=== PATIENT | male | born 1965 | race Caucasian/White ===

== ENCOUNTER 2021-11-28 07:26 | Inpatient (IN) ==
[2021-11-28] MEDS ORDERED: FUROSEMIDE 100 MG/10 ML VIAL IV STA (07:57)
[2021-11-28 08:06] LABS: Basophils % 0.5 % (0.0-0.8); Eosinophils # 0.1 10*3/uL (0.0-0.87); Eosinophils % 0.8 % (0.00-10.9); Hemoglobin 13.3 GM/DL (14.0-18.0); Immature Granulocytes % 0.3 %; Immature Granulocytes Absolute 0.02 #; Lymphocytes # 1.1 10*3/uL (1.4-4.0); Lymphocytes % 16.4 % (21.2-54.2); Mean Corpuscular HGB Conc 30.9 GM/DL (32-36); Mean Corpuscular Volume 97.5 FL (87-102); Mean Platelet Volume 9.7 FL (9.6-12.0); Monocytes # 0.6 10*3/uL (0.11-0.8); Monocytes % 8.4 % (1.7-12.7); Neutrophils % 73.6 % (38.7-73.9); Platelet Count 193 T/CUMM (130-400); Red Blood Count 4.41 MC/CUMM (3.8-5.5); Red Cell Distribution Width 15.5 % (9.3-17.3); White Blood Count 6.5 T/CUMM (4-12)
[2021-11-28 08:24] LABS: Albumin 3.8 G/DL (3.4-5.0); Calcium 9.5 MG/DL (8.5-10.1); Total Protein 7.2 G/DL (6.4-8.2)
[2021-11-28 08:55] LABS: Urine Appearance Clear (Clear); Urine Color Yellow (Yellow)
[2021-11-28 08:56] LABS: Bilirubin,Urine Negative (Negative); Blood, Urine Negative (Negative); Glucose,Urine (UA) Negative (Negative); Ketones,Urine Negative (Negative); Nitrite,Urine Negative (Negative); Protein,Urine Negative (Negative)
[2021-11-28 08:59] LABS: Mucus,Urine Occasional /LPF (Occasional); RBC,Urine <1 /HPF (0-4)
[2021-11-28] MEDS ORDERED: ONDANSETRON 4 MG/2 ML VIAL IV PRN (10:46)
[2021-11-28] MEDS ORDERED: ACETAMINOPHEN 325 MG TABLET PO PRN (10:46)
[2021-11-28] MEDS ORDERED: GLUCAGON 1 MG VIAL IM PRN (10:46)
[2021-11-28] MEDS ORDERED: CYCLOBENZAPRINE 10 MG TABLET PO PRN (10:56)
[2021-11-28] MEDS ORDERED: DEXTROSE 10% 250 ML BAG IV PRN (11:02)
[2021-11-28] MEDS: ALBUTEROL 2.5 MG/3 ML NEB RESP TX SCH ×2 (12:49→19:14)
[2021-11-28] MEDS: FUROSEMIDE 40 MG/4 ML VIAL IV SCH ×2 (13:14→23:45)
[2021-11-28] MEDS: ENOXAPARIN 40 MG/0.4 ML SYRINGE SUBCUT SCH (13:14)
[2021-11-28] MEDS: LORazepam 1 MG TABLET PO PRN (13:22)
[2021-11-28] MEDS: SPIRONOLACTONE 25 MG TABLET PO SCH (14:08)
[2021-11-28] MEDS: carvediloL 3.125 MG TABLET PO SCH ×2 (14:08→22:36)
[2021-11-28] MEDS: GABAPENTIN 300 MG CAPSULE PO SCH ×2 (15:58→22:36)
[2021-11-28] MEDS ORDERED: DAPAGLIFLOZIN 10 MG TABLET PO SCH (22:00)
[2021-11-28] MEDS: traZODone 50 MG TABLET PO SCH (22:36)
[2021-11-28] MEDS: QUEtiapine 100 MG TABLET PO SCH (22:36)
[2021-11-29 06:15] LABS: Basophils % 0.5 % (0.0-0.8); Eosinophils # 0.1 10*3/uL (0.0-0.87); Eosinophils % 2.4 % (0.00-10.9); Hematocrit 37.6 VOL% (42.0-52.0); Hemoglobin 11.9 GM/DL (14.0-18.0); Immature Granulocytes % 0.3 %; Immature Granulocytes Absolute 0.02 #; Lymphocytes # 1.3 10*3/uL (1.4-4.0); Lymphocytes % 22.9 % (21.2-54.2); Mean Corpuscular HGB Conc 31.6 GM/DL (32-36); Mean Corpuscular Volume 95.4 FL (87-102); Mean Platelet Volume 10.4 FL (9.6-12.0); Monocytes # 0.5 10*3/uL (0.11-0.8); Monocytes % 9.2 % (1.7-12.7); Neutrophils % 64.7 % (38.7-73.9); Platelet Count 180 T/CUMM (130-400); Red Blood Count 3.94 MC/CUMM (3.8-5.5); Red Cell Distribution Width 15.6 % (9.3-17.3); White Blood Count 5.7 T/CUMM (4-12)
[2021-11-29 06:32] LABS: Calcium 8.9 MG/DL (8.5-10.1); Osmolality,Calculated 276.8 MOS/KG (273-304); Potassium 3.1 MMOL/L (3.5-5.1)
[2021-11-29 06:36] LABS: Risk Ratio 5.65; VLDL Cholesterol 16.2 MG/DL
[2021-11-29] MEDS: ALBUTEROL 2.5 MG/3 ML NEB RESP TX SCH ×3 (07:20→19:37)
[2021-11-29] MEDS ORDERED: FUROSEMIDE 40 MG/4 ML VIAL IV SCH (09:00)
[2021-11-29] MEDS ORDERED: ENALAPRIL 20 MG TABLET PO SCH (09:00)
[2021-11-29] MEDS ORDERED: SODIUM CHLORIDE 0.9% 250 ML IV ONE (09:17)
[2021-11-29] MEDS: PANTOPRAZOLE 40 MG TABLET PO SCH (09:37)
[2021-11-29] MEDS: GABAPENTIN 300 MG CAPSULE PO SCH ×3 (09:37→20:25)
[2021-11-29] MEDS: ASPIRIN EC 81 MG TABLET PO SCH (09:37)
[2021-11-29] MEDS ORDERED: POTASSIUM CHLORIDE 20 MEQ TABLET PO ONE (12:00)
[2021-11-29] MEDS: ENOXAPARIN 40 MG/0.4 ML SYRINGE SUBCUT SCH (12:33)
[2021-11-29] MEDS: QUEtiapine 100 MG TABLET PO SCH (20:25)
[2021-11-29] MEDS: ROSUVASTATIN 20 MG TABLET PO SCH (20:25)
[2021-11-29] MEDS: traZODone 50 MG TABLET PO SCH (20:26)
[2021-11-30 05:15] LABS: Basophils % 0.3 % (0.0-0.8); Eosinophils # 0.1 10*3/uL (0.0-0.87); Eosinophils % 2.2 % (0.00-10.9); Hematocrit 37.2 VOL% (42.0-52.0); Hemoglobin 11.8 GM/DL (14.0-18.0); Immature Granulocytes % 0.3 %; Immature Granulocytes Absolute 0.02 #; Lymphocytes # 1.4 10*3/uL (1.4-4.0); Lymphocytes % 23.9 % (21.2-54.2); Mean Corpuscular HGB Conc 31.7 GM/DL (32-36); Mean Corpuscular Volume 94.9 FL (87-102); Mean Platelet Volume 10.3 FL (9.6-12.0); Monocytes # 0.6 10*3/uL (0.11-0.8); Monocytes % 10.5 % (1.7-12.7); Neutrophils % 62.8 % (38.7-73.9); Platelet Count 186 T/CUMM (130-400); Red Blood Count 3.92 MC/CUMM (3.8-5.5); Red Cell Distribution Width 15.6 % (9.3-17.3); White Blood Count 5.8 T/CUMM (4-12)
[2021-11-30 05:29] LABS: Calcium 8.4 MG/DL (8.5-10.1); Osmolality,Calculated 276.2 MOS/KG (273-304); Potassium 3.2 MMOL/L (3.5-5.1)
[2021-11-30] MEDS: ALBUTEROL 2.5 MG/3 ML NEB RESP TX SCH ×3 (07:57→20:16)
[2021-11-30] MEDS: ASPIRIN EC 81 MG TABLET PO SCH (08:57)
[2021-11-30] MEDS: GABAPENTIN 300 MG CAPSULE PO SCH ×3 (08:57→20:51)
[2021-11-30] MEDS: PANTOPRAZOLE 40 MG TABLET PO SCH (08:58)
[2021-11-30] MEDS: ENOXAPARIN 40 MG/0.4 ML SYRINGE SUBCUT SCH (12:38)
[2021-11-30] MEDS: POTASSIUM CHLORIDE 20 MEQ TABLET PO PRN ×2 (15:27→17:40)
[2021-11-30] MEDS: POTASSIUM CHLORIDE 20 MEQ TABLET PO SCH (20:51)
[2021-11-30] MEDS: QUEtiapine 100 MG TABLET PO SCH (20:51)
[2021-11-30] MEDS: traZODone 50 MG TABLET PO SCH (20:54)
[2021-11-30] MEDS: ROSUVASTATIN 20 MG TABLET PO SCH (20:54)
[2021-12-01 04:20] LABS: Calcium 8.6 MG/DL (8.5-10.1); Osmolality,Calculated 277.8 MOS/KG (273-304)
[2021-12-01] MEDS: GABAPENTIN 300 MG CAPSULE PO SCH ×3 (08:25→21:44)
[2021-12-01] MEDS: ASPIRIN EC 81 MG TABLET PO SCH (08:25)
[2021-12-01] MEDS: PANTOPRAZOLE 40 MG TABLET PO SCH (08:25)
[2021-12-01] MEDS: POTASSIUM CHLORIDE 20 MEQ TABLET PO SCH ×2 (08:25→21:43)
[2021-12-01] MEDS: ALBUTEROL 2.5 MG/3 ML NEB RESP TX SCH ×3 (08:51→20:00)
[2021-12-01] MEDS: ENOXAPARIN 40 MG/0.4 ML SYRINGE SUBCUT SCH (10:39)
[2021-12-01] MEDS: ROSUVASTATIN 20 MG TABLET PO SCH (21:43)
[2021-12-01] MEDS: QUEtiapine 100 MG TABLET PO SCH (21:43)
[2021-12-01] MEDS: traZODone 50 MG TABLET PO SCH (21:44)
[2021-12-02] MEDS: LORazepam 1 MG TABLET PO PRN (05:37)
[2021-12-02 06:32] LABS: Hematocrit 38.4 VOL% (42.0-52.0); Mean Corpuscular HGB Conc 31.3 GM/DL (32-36); Mean Corpuscular Volume 97.7 FL (87-102); Mean Platelet Volume 10.6 FL (9.6-12.0); Neutrophils % 66.7 % (38.7-73.9); Platelet Count 165 T/CUMM (130-400); Red Blood Count 3.93 MC/CUMM (3.8-5.5); Red Cell Distribution Width 15.6 % (9.3-17.3)
[2021-12-02 06:33] LABS: Basophils % 0.5 % (0.0-0.8); Eosinophils # 0.1 10*3/uL (0.0-0.87); Eosinophils % 1.7 % (0.00-10.9); Immature Granulocytes % 0.3 %; Immature Granulocytes Absolute 0.02 #; Lymphocytes # 1.2 10*3/uL (1.4-4.0); Lymphocytes % 20.6 % (21.2-54.2); Monocytes # 0.6 10*3/uL (0.11-0.8); Monocytes % 10.2 % (1.7-12.7)
[2021-12-02] MEDS: ALBUTEROL 2.5 MG/3 ML NEB RESP TX SCH ×3 (06:50→19:58)
[2021-12-02 07:08] LABS: Calcium 8.6 MG/DL (8.5-10.1); Potassium 3.9 MMOL/L (3.5-5.1)
[2021-12-02] MEDS: ASPIRIN EC 81 MG TABLET PO SCH (10:27)
[2021-12-02] MEDS: POTASSIUM CHLORIDE 20 MEQ TABLET PO SCH ×2 (10:28→21:34)
[2021-12-02] MEDS: PANTOPRAZOLE 40 MG TABLET PO SCH (10:28)
[2021-12-02] MEDS: GABAPENTIN 300 MG CAPSULE PO SCH ×3 (10:28→21:32)
[2021-12-02] MEDS: ENOXAPARIN 40 MG/0.4 ML SYRINGE SUBCUT SCH (10:29)
[2021-12-02] MEDS ORDERED: HEPARIN/NACL 0.9% 2 UNITS/ML 3,000 UNIT/1,500 ML BAG IV ONE (12:45)
[2021-12-02] MEDS ORDERED: HEPARIN/NACL 0.9% 2 UNITS/ML 2,000 UNIT/1,000 ML BAG IV ONE (12:46)
[2021-12-02] MEDS ORDERED: FUROSEMIDE 40 MG/4 ML VIAL ONE (13:05)
[2021-12-02] MEDS ORDERED: MIDAZOLAM 2 MG/2 ML VIAL ONE ×2 (13:08→13:21)
[2021-12-02] MEDS ORDERED: fentaNYL 100 MCG/2 ML VIAL ONE (13:21)
[2021-12-02] MEDS ORDERED: HEPARIN 5,000 UNIT/1 ML VIAL ONE (13:39)
[2021-12-02] MEDS ORDERED: NITROGLYCERIN DRIP 50 MG/250 ML BOTTLE IV ONE (13:41)
[2021-12-02] MEDS ORDERED: CLOPIDOGREL 300 MG TABLET ONE (13:44)
[2021-12-02] MEDS ORDERED: MORPHINE 2 MG/1 ML SYRINGE IV ONE (15:58)
[2021-12-02] MEDS ORDERED: MORPHINE 10 MG/1 ML VIAL ONE (16:00)
[2021-12-02] MEDS: ROSUVASTATIN 20 MG TABLET PO SCH (21:32)
[2021-12-02] MEDS: traZODone 50 MG TABLET PO SCH (21:33)
[2021-12-02] MEDS: QUEtiapine 100 MG TABLET PO SCH (21:33)
[2021-12-03 04:55] LABS: Basophils % 0.2 % (0.0-0.8); Eosinophils # 0.1 10*3/uL (0.0-0.87); Eosinophils % 0.9 % (0.00-10.9); Hematocrit 37.1 VOL% (42.0-52.0); Hemoglobin 11.7 GM/DL (14.0-18.0); Immature Granulocytes % 0.4 %; Immature Granulocytes Absolute 0.02 #; Lymphocytes # 1.1 10*3/uL (1.4-4.0); Lymphocytes % 19.5 % (21.2-54.2); Mean Corpuscular HGB Conc 31.5 GM/DL (32-36); Mean Corpuscular Volume 95.1 FL (87-102); Mean Platelet Volume 10.3 FL (9.6-12.0); Monocytes # 0.5 10*3/uL (0.11-0.8); Platelet Count 169 T/CUMM (130-400); Red Cell Distribution Width 15.6 % (9.3-17.3); White Blood Count 5.4 T/CUMM (4-12)
[2021-12-03 05:11] LABS: Calcium 8.5 MG/DL (8.5-10.1); Calcium 8.7 MG/DL (8.5-10.1); Potassium 3.4 MMOL/L (3.5-5.1)
[2021-12-03] MEDS: ALBUTEROL 2.5 MG/3 ML NEB RESP TX SCH ×2 (06:49→12:07)
[2021-12-03] MEDS ORDERED: carvediloL 3.125 MG TABLET PO SCH (08:15)
[2021-12-03] MEDS ORDERED: POTASSIUM CHLORIDE 20 MEQ TABLET PO ONE (08:30)
[2021-12-03] MEDS ORDERED: FUROSEMIDE 40 MG TABLET PO SCH (09:00)
[2021-12-03] MEDS ORDERED: CLOPIDOGREL 75 MG TABLET PO SCH (09:00)
[2021-12-03] MEDS: LORazepam 1 MG TABLET PO PRN (09:17)
[2021-12-03] MEDS: GABAPENTIN 300 MG CAPSULE PO SCH (09:17)
[2021-12-03] MEDS: ASPIRIN EC 81 MG TABLET PO SCH (09:17)
[2021-12-03] MEDS: PANTOPRAZOLE 40 MG TABLET PO SCH (09:18)
[2021-12-03] MEDS: SPIRONOLACTONE 25 MG TABLET PO SCH (09:21)
[2021-12-03] MEDS: POTASSIUM CHLORIDE 20 MEQ TABLET PO SCH (09:21)
[2021-12-03 11:21] VITALS: BP 118/89
[2021-12-03] MEDS: ENOXAPARIN 40 MG/0.4 ML SYRINGE SUBCUT SCH (11:55)
== END 2021-12-03 14:10 | disposition home or self-care (01) | DRG 175 ==
LOC: N.ED 07:26 → N.EDINP 07:26 → SUATTDRO 11:18 → N.3E 11-29 00:27 → SUATTDRO 11-30 13:28
PROVIDERS: ADMIT Internal Medicine; ATTEND Internal Medicine

== ENCOUNTER 2022-03-28 07:33 | Inpatient (IN) ==
[2022-03-28 08:08] LABS: Basophils # 0.1 10*3/uL (0.0-0.2); Basophils % 0.5 % (0.0-0.8); Eosinophils # 0.1 10*3/uL (0.0-0.87); Eosinophils % 1.2 % (0.00-10.9); Hematocrit 40.4 VOL% (42.0-52.0); Hemoglobin 12.9 GM/DL (14.0-18.0); Immature Granulocytes % 0.5 %; Immature Granulocytes Absolute 0.05 #; Lymphocytes # 1.4 10*3/uL (1.4-4.0); Lymphocytes % 14.9 % (21.2-54.2); Mean Corpuscular HGB Conc 31.9 GM/DL (32-36); Mean Platelet Volume 10.5 FL (9.6-12.0); Monocytes % 10.5 % (1.7-12.7); NRBC # 0.02 10*3/uL; Neutrophils % 72.4 % (38.7-73.9); Platelet Count 222 T/CUMM (130-400); Red Cell Distribution Width 19.2 % (9.3-17.3); White Blood Count 9.2 T/CUMM (4-12)
[2022-03-28 08:20] LABS: INR 1.5; PT Patient Result 15.8 SECS (10.1-12.1); Partial Thromboplastin Time 29.2 SECS (23.7-32.9)
[2022-03-28 09:19] LABS: Albumin 3.4 G/DL (3.4-5.0); Bilirubin,Total 1.9 MG/DL (0.20-1.00); Calcium 8.9 MG/DL (8.5-10.1); Osmolality,Calculated 279.8 MOS/KG (273-304); Potassium 4.1 MMOL/L (3.5-5.1); Total Protein 5.8 G/DL (6.4-8.2)
[2022-03-28] MEDS ORDERED: MORPHINE 2 MG/1 ML SYRINGE IV STA (10:44)
[2022-03-28] MEDS ORDERED: SODIUM CHLORIDE 0.9% 500 ML IV ONE (12:20)
[2022-03-28] MEDS ORDERED: METOPROLOL TARTRATE 5 MG/5 ML VIAL IV ONE (12:20)
[2022-03-28] MEDS ORDERED: ACETAMINOPHEN 325 MG TABLET PO PRN (12:21)
[2022-03-28] MEDS ORDERED: DOCUSATE SODIUM 100 MG CAPSULE PO PRN (12:21)
[2022-03-28] MEDS ORDERED: ALUMINUM/MAGNES/SIMETH MAX STR 30 ML UDCUP PO PRN (12:21)
[2022-03-28] MEDS ORDERED: LACTULOSE 20 GM/30 ML UDCUP PO PRN (12:21)
[2022-03-28] MEDS ORDERED: ONDANSETRON 4 MG/2 ML VIAL IV PRN (12:21)
[2022-03-28] MEDS ORDERED: TISSUE ADHESIVE 1 EACH APPLICATOR TOP ONE (13:30)
[2022-03-28] MEDS ORDERED: GABAPENTIN 300 MG CAPSULE PO ONE (16:30)
[2022-03-28] MEDS: carvediloL 3.125 MG TABLET PO SCH (17:50)
[2022-03-28] MEDS ORDERED: MORPHINE 2 MG/1 ML SYRINGE IV PRN (20:10)
[2022-03-28] MEDS: QUEtiapine XR 50 MG TABLET PO SCH (21:35)
[2022-03-28] MEDS: GABAPENTIN 300 MG CAPSULE PO SCH (21:35)
[2022-03-28] MEDS: traZODone 50 MG TABLET PO SCH (21:35)
[2022-03-29 04:58] LABS: Basophils % 0.6 % (0.0-0.8); Eosinophils # 0.1 10*3/uL (0.0-0.87); Eosinophils % 1.5 % (0.00-10.9); Hematocrit 36.9 VOL% (42.0-52.0); Hemoglobin 11.8 GM/DL (14.0-18.0); Immature Granulocytes % 0.4 %; Immature Granulocytes Absolute 0.02 #; Lymphocytes # 1.1 10*3/uL (1.4-4.0); Mean Corpuscular Volume 99.7 FL (87-102); Mean Platelet Volume 9.8 FL (9.6-12.0); Monocytes # 0.6 10*3/uL (0.11-0.8); Monocytes % 12.1 % (1.7-12.7); Neutrophils % 62.4 % (38.7-73.9); Platelet Count 156 T/CUMM (130-400); Red Cell Distribution Width 18.6 % (9.3-17.3); White Blood Count 4.7 T/CUMM (4-12)
[2022-03-29 05:29] LABS: Albumin 2.6 G/DL (3.4-5.0); Calcium 8.3 MG/DL (8.5-10.1); Osmolality,Calculated 274.7 MOS/KG (273-304); Potassium 3.4 MMOL/L (3.5-5.1); Risk Ratio 5.45; Total Protein 4.9 G/DL (6.4-8.2); VLDL Cholesterol 17.8 MG/DL
[2022-03-29 05:38] LABS: Eosinophils 1 % (0-10); Lymphocytes 19 % (20-55); Total Cells Counted 100
[2022-03-29 05:39] LABS: Macrocytosis Slight; Platelet Estimate Adequate; Polychromasia Slight
[2022-03-29] MEDS: carvediloL 3.125 MG TABLET PO SCH ×2 (09:36→17:48)
[2022-03-29] MEDS: GABAPENTIN 300 MG CAPSULE PO SCH ×3 (09:36→20:23)
[2022-03-29] MEDS: PANTOPRAZOLE 40 MG TABLET PO SCH (09:37)
[2022-03-29] MEDS: APIXABAN 5 MG TABLET PO SCH ×2 (11:09→20:23)
[2022-03-29] MEDS: SPIRONOLACTONE 25 MG TABLET PO SCH ×2 (11:09→20:22)
[2022-03-29] MEDS: CLOPIDOGREL 75 MG TABLET PO SCH (11:09)
[2022-03-29] MEDS ORDERED: FUROSEMIDE 40 MG TABLET PO SCH (11:30)
[2022-03-29] MEDS: ACETAMINOPHEN/CODEINE 300-30 MG TABLET PO PRN ×2 (12:10→20:22)
[2022-03-29] MEDS: LEVOTHYROXINE 25 MCG TABLET PO SCH (14:45)
[2022-03-29] MEDS: NICOTINE 21 MG/24 HR PATCH TRANSDERM SCH (14:55)
[2022-03-29] MEDS: FUROSEMIDE 40 MG/4 ML VIAL IV SCH (18:17)
[2022-03-29] MEDS: traMADol 50 MG TABLET PO SCH (20:23)
[2022-03-29] MEDS: traZODone 50 MG TABLET PO SCH (20:23)
[2022-03-29] MEDS: QUEtiapine XR 50 MG TABLET PO SCH (20:34)
[2022-03-29 21:48] LABS: Barbiturates Screen,Urine Negative (Negative); Benzodiazepines Screen,Urine Negative (Negative); Cannabinoid Screen,Urine Positive (Negative); Opiate Screen,Urine Positive (Negative); Phencyclidine Screen,Urine Negative (Negative)
[2022-03-30 05:11] LABS: Albumin 2.8 G/DL (3.4-5.0); Bilirubin,Total 1.2 MG/DL (0.20-1.00); Calcium 8.1 MG/DL (8.5-10.1); Potassium 3.7 MMOL/L (3.5-5.1); Total Protein 5.3 G/DL (6.4-8.2)
[2022-03-30] MEDS: LEVOTHYROXINE 25 MCG TABLET PO SCH (06:59)
[2022-03-30] MEDS: FUROSEMIDE 40 MG/4 ML VIAL IV SCH ×2 (07:49→17:58)
[2022-03-30] MEDS ORDERED: MAGNESIUM SULF RIDER 2 GM/50 ML PREMIX IV ONE (09:06)
[2022-03-30] MEDS: GABAPENTIN 300 MG CAPSULE PO SCH ×3 (09:10→21:15)
[2022-03-30] MEDS: CLOPIDOGREL 75 MG TABLET PO SCH (09:11)
[2022-03-30] MEDS: carvediloL 3.125 MG TABLET PO SCH ×2 (09:11→18:05)
[2022-03-30] MEDS: traMADol 50 MG TABLET PO SCH ×2 (09:12→21:15)
[2022-03-30] MEDS: APIXABAN 5 MG TABLET PO SCH (09:12)
[2022-03-30] MEDS: PANTOPRAZOLE 40 MG TABLET PO SCH (09:12)
[2022-03-30] MEDS: SPIRONOLACTONE 25 MG TABLET PO SCH ×2 (09:13→10:35)
[2022-03-30] MEDS: NICOTINE 21 MG/24 HR PATCH TRANSDERM SCH (09:24)
[2022-03-30] MEDS: MIDODRINE 5 MG TABLET PO SCH ×3 (10:19→21:14)
[2022-03-30] MEDS: traZODone 50 MG TABLET PO SCH (21:15)
[2022-03-30] MEDS: QUEtiapine XR 50 MG TABLET PO SCH (21:15)
[2022-03-31 04:51] LABS: Basophils % 0.4 % (0.0-0.8); Eosinophils # 0.1 10*3/uL (0.0-0.87); Eosinophils % 1.6 % (0.00-10.9); Hematocrit 37.6 VOL% (42.0-52.0); Immature Granulocytes % 0.6 %; Immature Granulocytes Absolute 0.04 #; Lymphocytes # 1.1 10*3/uL (1.4-4.0); Lymphocytes % 15.8 % (21.2-54.2); Mean Corpuscular HGB Conc 31.9 GM/DL (32-36); Mean Corpuscular Volume 102.7 FL (87-102); Monocytes # 0.8 10*3/uL (0.11-0.8); Monocytes % 11.7 % (1.7-12.7); Neutrophils % 69.9 % (38.7-73.9); Platelet Count 159 T/CUMM (130-400); Red Blood Count 3.66 MC/CUMM (3.8-5.5); Red Cell Distribution Width 18.7 % (9.3-17.3); White Blood Count 6.9 T/CUMM (4-12)
[2022-03-31 05:09] LABS: Calcium 8.3 MG/DL (8.5-10.1); Osmolality,Calculated 273.1 MOS/KG (273-304); Potassium 3.8 MMOL/L (3.5-5.1)
[2022-03-31] MEDS: LEVOTHYROXINE 25 MCG TABLET PO SCH (05:46)
[2022-03-31] MEDS: FUROSEMIDE 40 MG/4 ML VIAL IV SCH (08:53)
[2022-03-31] MEDS: MIDODRINE 5 MG TABLET PO SCH (08:54)
[2022-03-31] MEDS: GABAPENTIN 300 MG CAPSULE PO SCH (08:54)
[2022-03-31] MEDS: PANTOPRAZOLE 40 MG TABLET PO SCH (08:54)
[2022-03-31] MEDS: traMADol 50 MG TABLET PO SCH (08:54)
[2022-03-31] MEDS: SPIRONOLACTONE 25 MG TABLET PO SCH (08:54)
[2022-03-31] MEDS: NICOTINE 21 MG/24 HR PATCH TRANSDERM SCH (08:55)
[2022-03-31] MEDS: carvediloL 3.125 MG TABLET PO SCH (08:56)
[2022-03-31] MEDS: CLOPIDOGREL 75 MG TABLET PO SCH (09:04)
[2022-03-31 11:34] VITALS: BP 103/63
[2022-03-31] MEDS ORDERED: MIDODRINE 5 MG TABLET PO SCH (13:00)
[2022-03-31] MEDS ORDERED: SPIRONOLACTONE 25 MG TABLET PO SCH (21:00)
[2022-03-31 22:41] LABS: RBC,Peritoneal Fluid 538 T/CUMM
[2022-03-31 22:48] LABS: Neutrophils,Peritoneal Fluid 26 %
== END 2022-03-31 12:57 | disposition home or self-care (01) | DRG 194 ==
LOC: N.ED 07:33 → SUATTDRO 12:21 → N.EDINP 12:21 → N.TELES 03-29 00:59
PROVIDERS: ADMIT Internal Medicine; ATTEND Internal Medicine